=== PATIENT | male | born 1990 | race Caucasian/White ===

== ENCOUNTER 2020-06-20 06:12 | Outpatient (REF) | payer OTHER, SELFPAY | END 2020-06-20 06:13 | disposition home or self-care (01) | LOC: HO.HMGCLDS 06:12 | PROVIDERS: PCP Internal Medicine; Visit Provider Internal Medicine | DX: Z20.828 Contact with and (suspected) exposure to other viral communicable diseases (principal) | CPT/HCPCS: C9803; U0003 ==

== ENCOUNTER 2023-07-28 13:03 | Outpatient (AMB) | payer BC, SELFPAY ==
[2023-07-28 13:11] VITALS: BP 102/64; PULSE 62; O2SAT 98; BMI 24.7
--- NOTE | 2023-07-28 13:11 | A.OFFPC_ITS ---
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 Accompanied by: Self / Same As Patient Allergies peanuts Allergy (Severe, Uncoded 07/28/23 13:12) Rash Medication List - Last Reconciled 07/28/23 by Woo Francisco MD albuterol sulfate 90 mcg/actuation (ProAir HFA) 2 puffs inhalation Q4-6H PRN finasteride 1 mg PO DAILY Tobacco use date assessed: 07/28/23 Dental Screening Dental Screen Date: 07/28/23 Did you have a dental visit in the last 12 months?: Yes Did you have a dental problem in the last 6 months where you did not have access to dental care?: No Was dental information given to patient?: Patient has dentist HPI Annual PE HPI Details Asthma, stable [facility] Medical History (Updated 06/06/21 @ 10:25 by Woo Francisco MD) Asthma Social History Housing: House Patient Tobacco Use Status: Never used Tobacco e-Cigarette/Vaping Use: Never Used Second Hand Smoke Exposure: No service: No Current occupational status: employed Cognitive needs: No Hearing needs: No Vision needs: No Questionnaire PHQ-9 Over the last 2 weeks, how often have you been bothered by any of the following problems? 1. Little interest or pleasure in doing things: not at all 2. Feeling down, depressed, or hopeless: not at all 3. Trouble falling or staying asleep, or sleeping too much: not at all 4. Feeling tired or having little energy: not at all 5. Poor appetite or overeating: not at all 6. Feeling bad about yourself - or that you are a failure or have let yourself or your family down: not at all 7. Trouble concentrating on things, such as reading the newspaper or watching television: not at all 8. Moving or speaking so slowly that other people could have noticed. Or the opposite - being so fidgety or restless that you have been moving around a lot more than usual: not at all 9. Thoughts that you would be better off or of hurting yourself in some way: not at all Total score: 0 Depression Screening Interpretation: Negative Depression Screening Done: Yes 67345 - PHQ-9 Billing: Yes Source: Developed by Drs. Luis Barraza, Rashmi Erickson, Zaheer Zuleta and colleagues, with an educational noris from [employer]. Thrive Questionnaire Date Thrive assessed: 07/28/23 I am a: Patient What is your living situation today?: I have a steady place to live Within the past 12 months, did the food you bought not last and you didn't have the money to get more?: Never true Within the past 12 months, did you worry whether your food would run out before you got money to buy more?: Never true Do you have trouble paying for medicines?: No Do you have trouble getting transportation to medical appointments?: No Do you have trouble paying your heating and electricity bill?: No Do you have trouble taking care of your child, family member or friend?: No Do you have trouble with day-to-day activities such as bathing, preparing meals, shopping, managing finances, etc.?: No Are you currently unemployed and looking for a job?: No Are you interested in more education?: No Please select the resources that you would like help with: None THRIVE Score: 0 AUDIT C Alcohol Use Questionnaire (AUDIT-C) 1. How often do you have a drink containing alcohol?: 2-3 times a week 2. How many drinks containing alcohol do you have on a typical day when you are drinking?: 1 or 2 3. How often do you have six or more drinks on one occasion?: Never Total Score: 3 Score Reviewed/Action Taken: Yes EVI-7 AMB Questionnaire EVI-7 Date EVI - 7 assessed: 07/28/23 Feeling nervous, anxious, or on edge: 0 = Not at all Not being able to stop or control worryin = Not at all Worrying too much about different things: 0 = Not at all Trouble relaxin = Not at all Being so restless that it is hard to sit still: 0 = Not at all Becoming easily annoyed or irritable: 0 = Not at all Feeling afraid as if something awful might happen: 0 = Not at all Total EVI-7 score (0-4 normal; 5-9 mild; 10-14 moderate; 15-21 severe): 0 Source: Developed by Drs. Luis Barraza, Rashmi Erickson, Zaheer Zuleta and colleagues, with an educational noris from [employer]. EVI-7 Assessment Billing EVI-7 Assessment Tool: EVI-7 Assessment 11864 Review of Systems Const Denies chills, Denies fatigue, Denies headache(s) and Denies weight loss Eyes Denies change in vision, Denies diplopia and Denies eye pain ENT Denies vertigo, Denies dizziness, Denies headache(s) and Denies nasal discharge Card Denies chest pain, Denies rapid heart rate and Denies dyspnea on exertion Resp Denies chest congestion, Denies cough, Denies pain with cough and Denies dyspnea on exertion GI Denies abdominal pain, Denies hematochezia and Denies change in bowel habits Musc Denies myalgias, Denies arthralgias and Denies joint swelling Skin/Breast Denies lesions and Denies unusual bruising Neuro Denies vertigo, Denies dizziness, Denies headache(s) and Denies focal weakness Endo Denies fatigue Physical exam (Primary Care) Vital Signs: Last Vital Signs Pulse 62 07/28/23 13:11 BP 102/64 07/28/23 13:11 Pulse Ox 98 07/28/23 13:11 Oxygen Delivery Method Room Air 07/28/23 13:11 BMI result Body Mass Index 24.7 Tobacco/Smoking Status: Tobacco use Status Tobacco use date assessed 07/28/23 07/28/23 13:15 Patient Tobacco Use Status Never used Tobacco 07/28/23 13:15 e-Cigarette/Vaping Use Never Used 07/28/23 13:15 PHQ-9: PHQ-9 Score PHQ-9: Total score 0 07/28/23 13:15 Depression Screening Interpretation: Negative Thrive Assessment: Date of Thrive Assessment Date Thrive assessed 07/28/23 07/28/23 13:15 Const General: cooperative, healthy appearing and no acute distress Orientation/consciousness: oriented to person, oriented to place and oriented to time HENMT Head: Yes normal to inspection, Yes normocephalic and Yes atraumatic Mouth: Normal oral and palatal mucosa present and tongue normal Throat: Yes posterior oropharynx normal and Yes uvula midline Eyes General: appearance normal, both eyes and all related structures Neck Neck: Yes normal visual inspection, Yes full ROM and Yes no lymphadenopathy Thyroid: Thyroid normal Carotids: normal carotid upstroke Chest Chest palpation & inspection: normal inspection of the chest Resp Effort & Inspection: normal respiratory effort and able to speak in complete sentences Auscultation: clear to auscultation bilaterally Cardio Jugular venous distension: no JVD Palpation: normal PMI Rate: regular rate Rhythm: regular rhythm Heart sounds: S1 normal heart sound present and S2 normal heart sound present GI Inspection: Yes normal to inspection Palpation (GI): Soft to palpation and No hepatosplenomegaly present Auscultation: normal bowel sounds General: Yes no CVA tenderness Back/Spine/Pelvis Back: no CVA tenderness Skin General skin exam: no rashes or lesions noted Neuro General: oriented to person, oriented to place and oriented to time Extrem General: Yes normal to inspection and Yes full ROM Assessment and Plan Assessment & Plan (1) Physical exam: Code(s): Z00.00 - Encounter for general adult medical examination without abnormal findings Plan: do labs (2) Asthma: Code(s): J45.909 - Unspecified asthma, uncomplicated Plan: stable; same rx Orders: Orders Lipid Panel Today E78.5 - Hyperlipidemia, unspecified Comprehensive [place]. Panel Fast Today N28.9 - Disorder of kidney and ureter, unspecified Complete Blood Count Auto Diff Today D64.9 - Anemia, unspecified Coding Level of Care Code Est Pt Prev Care 18-39y(30117) Diagnoses Physical exam Z00.00 Asthma J45.909 Additional Codes EVI-7 Assessment Billing - EVI-7 Assessment Tool: EVI-7 Assessment 73400 ([id number])
== END 2023-07-28 13:24 | disposition home or self-care (01) ==
PROVIDERS: PCP Internal Medicine; Visit Provider Internal Medicine
DX: Z00.00 Encounter for general adult medical examination without abnormal findings (principal); J45.909 Unspecified asthma, uncomplicated
CPT/HCPCS: 99395

== ENCOUNTER 2023-11-08 07:51 | Outpatient (AMB) | payer BC, SELFPAY ==
--- NOTE | 2023-11-08 07:56 | MHC.PC.OV ---
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 At 1st it was worse and he could not lay down on the left side due to this matter. But then it started improving. He has full active range of motion but when lifting or doing certain movements he have to put his left elbow close to the body to be able to do certain movements. Has not received physical therapy or do any kind of imaging. The pain still happens about 20 times a day while doing certain movements. Sharp in quality. Resolve on its own or with Tylenol [id number]. I will refer him to ortho and order an x-ray. [facility] Medical History Asthma Surgical History No pertinent past surgical history Social History Housing: House Patient Tobacco Use Status: Never used Tobacco e-Cigarette/Vaping Use: Never Used Second Hand Smoke Exposure: No service: No Current occupational status: employed Current occupational exposures/hazards: No Cognitive needs: No Hearing needs: No Vision needs: No Questionnaire Thrive Questionnaire Date Thrive assessed: 07/28/23 EVI-7 AMB Questionnaire EVI-7 Date EVI - 7 assessed: 07/28/23 Source: Developed by Drs. Luis Barraza, Rashmi Erickson, Zaheer Zuleta and colleagues, with an educational noris from [employer]. Review of Systems Const All systems reviewed & are unremarkable except as noted in HPI and below Eyes Reports no additional complaints, Denies change in vision and Denies other visual disturbances Card Denies chest pain at rest, Denies chest pain with activity, Denies edema, Denies irregular heart rhythm, Denies claudication, Denies dyspnea, Denies dyspnea on exertion, Denies orthopnea, Denies paroxysmal nocturnal dyspnea and Denies slow heart rate Resp Denies cough, Denies dyspnea and Denies dyspnea on exertion Musc Reports arthralgias Physical exam (Primary Care) Vital Signs: Last Vital Signs BP 110/72 11/08/23 07:58 BMI result Body Mass Index 24.1 Tobacco/Smoking Status: Tobacco use Status Tobacco use date assessed 07/28/23 11/08/23 08:02 Patient Tobacco Use Status Never used Tobacco 11/08/23 08:02 e-Cigarette/Vaping Use Never Used 11/08/23 08:02 Thrive Assessment: Date of Thrive Assessment Date Thrive assessed 07/28/23 11/08/23 08:02 Resp Effort & Inspection: normal respiratory effort Auscultation: clear to auscultation bilaterally Cardio Jugular venous distension: no JVD Rate: regular rate Rhythm: regular rhythm Heart sounds: S1 normal heart sound present and S2 normal heart sound present Extrem General: Yes full ROM Left upper extremity: shoulder/upper arm Details: tenderness Assessment and Plan Assessment & Plan (1) Left shoulder pain: Code(s): M25.512 - Pain in left shoulder Qualifiers: Chronicity: chronic Qualified Code(s): M25.512 - Pain in left shoulder; G89.29 - Other chronic pain Plan: X-ray ordered. Referred to Ortho. Orders: Orders XR shoulder LT min 2V Today M25.512 - Pain in left shoulder Referrals Orthopedics Referral M25.512 - Pain in left shoulder Coding Level of Care Code Est Pt Level 3 (27539) Diagnoses Chronic left shoulder pain M25.512; G89.29 Chronicity: chronic Time Spent (min) 19
[2023-11-08 07:58] VITALS: BP 110/72; BMI 24.1
== END 2023-11-08 08:20 | disposition home or self-care (01) ==
PROVIDERS: PCP Internal Medicine; Visit Provider Internal Medicine
DX: M25.512 Pain in left shoulder (principal); G89.29 Other chronic pain
CPT/HCPCS: 99213

== ENCOUNTER 2023-11-09 16:15 | Outpatient (REF) | payer BC, SELFPAY ==
--- NOTE | ~2023-11-09 | XR_ITS ---
EXAMINATION: XR SHOULDER, LEFT CLINICAL INFORMATION: Pain in left shoulder. COMPARISON: None available. TECHNIQUE: Four views of the left shoulder. FINDINGS: Minimal degenerative changes in the acromioclavicular and glenohumeral joints. Acromioclavicular and glenohumeral alignment is preserved. No abnormal soft tissue calcifications identified adjacent to the humeral head to suggest rotator cuff pathology. XR/XR shoulder LT min 2V IMPRESSION: Minimal degenerative changes.
== END 2023-11-09 16:16 | disposition home or self-care (01) ==
LOC: HO.XRAY 16:15
PROVIDERS: PCP Internal Medicine; Visit Provider Internal Medicine
DX: M25.512 Pain in left shoulder (principal)
CPT/HCPCS: 73030

== ENCOUNTER 2023-12-01 15:03 | Outpatient (AMB) | payer BC, SELFPAY ==
--- NOTE | 2023-12-01 15:16 | MHC.OFFVIS ---
Intake Visit Reasons: New Pt - Left shoulder pain Intake Note: Sae a 33 year old male who presents today as a new patient for an evaluation of left shoulder pain. Patient reports left shoulder pain presented in July 2023 after a hard impact fall on his shoulder while skiing. Currently his pain is mostly located in his shoulder however at times will radiates down his arm to his bicep area. Intermittent pain that gets worse with certain arm movement. Numbness and tingling in elbow however this has subsided. NO previous tx. Allergies peanuts Allergy (Severe, Uncoded 12/01/23 15:50) Rash Medication List - Last Reconciled 12/01/23 by TATIANA Rodriguez albuterol sulfate 90 mcg/actuation (ProAir HFA) 2 puffs inhalation Q4-6H PRN finasteride 1 mg PO DAILY HPI HPI New Pt - Left shoulder pain: Details: Patient is a 33-year-old male reports to the office today for complaints of left shoulder pain that has been ongoing since he sustained a left shoulder injury while skiing in late July or early August of this year. The patient reports that he fell while skiing, and felt his entire shoulder ?push way back?. The patient reports that he was able to continue skiing at this time, however when he woke up the next morning he was experiencing severe pain, to the point where he could not drive with that arm or perform any other activities with that arm. The patient reports that, since this time, he has been able to regain full function of his shoulder, however this is often associated with a severe pain throughout his entire shoulder. When his pain is focal, the patient reports that it is over the anterior aspect of the shoulder, and ?deep within the shoulder?. He reports that his pain episodes feel like a flash of severe pain that goes away relatively quickly. The patient reports that this pain often occurs at work, particularly when he is holding weight over his head. The patient also reports that, a few days ago, his son placed his head on his left arm while it was in abduction, and this produced an extremely uncomfortable sensation in the patient's left shoulder, that felt like severe pain and instability. 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 Patient reports mild tenderness to palpation over the bicipital groove/greater and lesser tuberosities the humeral head. Active and passive range of motion full and intact, but the patient reports pain at approximately 170 degrees of forward flexion of left shoulder. Internal and external rotation at the shoulder full, intact and nonpainful. Negative cross-body abduction. Negative Armstrong's test. Mild weakness noted on empty can test in the left arm when compared to the right. Positive apprehension test of the left shoulder. NVI. All other exam findings within normal limits. Results Reviewed Results Reviewed: X-rays obtained in the office today and independently reviewed by me, Cristhian Borja PA-C, demonstrate no fracture or other acute bony abnormality. Assessment & Plan Assessment & Plan (1) Internal derangement of left shoulder: Code(s): M24.812 - Other specific joint derangements of left shoulder, not elsewhere classified Category: Medical (2) Left shoulder pain: Code(s): M25.512 - Pain in left shoulder Category: Medical Qualifiers: Chronicity: chronic Qualified Code(s): M25.512 - Pain in left shoulder; G89.29 - Other chronic pain Plan Patient referred to physical therapy today to help with shoulder strength and joint stabilization. Due to high index of suspicion for labral derangement, MRI arthrogram was also ordered today. Patient will schedule physical therapy, and will follow up with us in the office after MRI, or p.r.n. for any acute concerns. Patient will continue to work and use his left arm and shoulder as tolerated. Coding Level of Care Code New Pt Level 3 (94073) Diagnoses Internal derangement of left shoulder M24.812 Chronic left shoulder pain M25.512; G89.29 Chronicity: chronic
== END 2023-12-01 15:53 | disposition home or self-care (01) ==
PROVIDERS: PCP Internal Medicine; Visit Provider Physician Assistant
DX: M24.812 Other specific joint derangements of left shoulder, not elsewhere classified (principal); M25.512 Pain in left shoulder; G89.29 Other chronic pain
CPT/HCPCS: 99203

== ENCOUNTER → 2023-12-01 15:03 | Outpatient (BNVA) | payer BC, SELFPAY | PROVIDERS: PCP Internal Medicine; Visit Provider Physician Assistant ==

== ENCOUNTER 2024-01-06 12:45 | Outpatient (REF) | payer BC, SELFPAY ==
--- NOTE | ~2024-01-06 | FL_ITS ---
FLUOROSCOPIC GUIDED LEFT SHOULDER ARTHROGRAM INDICATIONS: Left shoulder pain. Intra-articular gadolinium injection is needed prior to MRI. Procedure: Risks and benefits and possible complications were discussed with the patient and the consent form was signed. The patient was placed supine on the fluoroscopy table. The left shoulder was prepped and draped in normal sterile fashion. 1% buffered lidocaine was used for anesthesia. A 22-gauge spinal needle was used to access the shoulder joint. Intra-articular position of the needle within the shoulder joint was verified using 3 cc of Omnipaque 300. A total of 10 mL of gadolinium/saline (1:200) contrast mixture was then injected into the shoulder joint. The needle was then removed and a Band-Aid was applied to the injection site. The patient tolerated the procedure well and was sent to MRI. There were no immediate complications. FL/FL arthrogram shoulder LT IMPRESSION: Successful fluoroscopic guided intra-articular instillation of dilute gadolinium into the left shoulder joint. Patient will undergo subsequent left shoulder MRI. The procedure was performed by gisela Greene PA-C, and directly supervised by Dr. Plasencia.
--- NOTE | ~2024-01-06 | MR_ITS ---
EXAMINATION: MR SHOULDER WITH CONTRAST, LEFT CLINICAL INFORMATION: Left shoulder pain. Possible labral injury, instability. COMPARISON: Radiograph dated 11/19/2023 TECHNIQUE: MRI of the shoulder was performed following the intra-articular administration of a dilute gadolinium-containing solution (arthrogram) on A high-field scanner. FINDINGS: ROTATOR CUFF: At the supraspinatus tendon insertion anteriorly there is a 1 cm (AP) partial-thickness interstitial tear involving 40-50% of the tendon thickness, associated with mild tendinosis. No articular surface involvement. Contrast material does not extend into this tear. No articular sided tears are identified. Infraspinatus and subscapularis tendons are normal. No muscle atrophy or fatty infiltration. BICEPS: Normal. CORACOACROMIAL ARCH: The undersurface of the acromion is curved with no subacromial spur. The acromioclavicular joint is normal. LABRUM/CAPSULE: There is a type II SLAP tear propagating through the superior labrum from the anterosuperior 1 o'clock position through the posterosuperior 10 o'clock position without involvement of the biceps tendon. No additional labral tears. Joint capsule is intact. GLENOHUMERAL JOINT/MARROW: Bone marrow signal is normal. No fracture or malalignment. Articular cartilage appears well-preserved. No intra-articular loose bodies. MR/MR shoulder LT w con IMPRESSION: 1. Type II SLAP tear. 2. A 1 cm (AP) partial-thickness interstitial tear at the supraspinatus tendon insertion.
[2024-01-06] MEDS: gadobutroL 2 ML VIAL IVPUSH (14:03)
== END 2024-01-06 12:46 | disposition home or self-care (01) ==
LOC: HO.XRAY 12:45
DX: M25.312 Other instability, left shoulder (principal)
CPT/HCPCS: 23350; 73040; 73222; A9585

== ENCOUNTER → 2024-01-06 12:48 | Outpatient (BNV) | payer BC, SELFPAY | PROVIDERS: Visit Provider Physician Assistant Surgical | DX: M25.512 Pain in left shoulder (principal) | CPT/HCPCS: 23350; 73040 ==

== ENCOUNTER 2024-02-10 15:05 | Outpatient (AMB) | payer BC, SELFPAY ==
[2024-02-10 15:06] VITALS: BMI 24.1
--- NOTE | 2024-02-10 15:06 | A.OFFVIS_ITS ---
Vital Signs 02/10/24 15:06 Height 5 ft 7 in Weight 154 lb BMI 24.1 Intake Visit Reasons: OV- LT shoulder MRI review Intake Note: Sae is a 33 year old -- hand dominant male who presents today for an MRI review of his left shoulder, He took a fall while skiing landing on the left shoulder in Jul. Patient reports that the left shoulder only hurts when he lifts something heavy. MR/MR shoulder LT w con IMPRESSION: 1. Type II SLAP tear. 2. A 1 cm (AP) partial-thickness interstitial tear at the supraspinatus tendon insertion. Allergies peanuts Allergy (Severe, Uncoded 12/01/23 15:50) Rash HPI HPI OV- LT shoulder MRI review: Details: Sae is a 33 year old -- hand dominant male who presents today for an MRI review of his left shoulder, He took a fall while skiing landing on the left shoulder in Jul. He comes in today for MRI review. He is actually feeling much better and has no pain. He has modified his activity slightly but he is completely and I worried about this problem now. Previously it was painful with reaching stretching or overhead activities but that has stopped. Most of the pain was anterior left shoulder. HPI Comments Details: Sae is a 33 year old -- hand dominant male who presents today for an MRI review of his left shoulder, He took a fall while skiing landing on the left shoulder in Jul. Patient reports that the left shoulder only hurts when he lifts something heavy. MR/MR shoulder LT w con IMPRESSION: 1. Type II SLAP tear. 2. A 1 cm (AP) partial-thickness interstitial tear at the supraspinatus tendon insertion. 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 Negative empty can. Negative Dewitt's. Results Reviewed Results Reviewed: MR/MR shoulder LT w con IMPRESSION: 1. Type II SLAP tear. 2. A 1 cm (AP) partial-thickness interstitial tear at the supraspinatus tendon insertion. Assessment & Plan Assessment & Plan (1) SLAP tear of shoulder: Code(s): S43.439A - Superior glenoid labrum lesion of unspecified shoulder, initial encounter Category: Medical Plan: Patient has type 2 slap tear on MRI and on clinical description of symptoms but he is asymptomatic now. I reviewed possible options in the future. No intervention warranted at this time. (2) Partial thickness rotator cuff tear: Code(s): M75.110 - Incomplete rotator cuff tear or rupture of unspecified shoulder, not specified as traumatic Category: Medical Plan: Patient also has a partial-thickness rotator cuff tear. If his symptoms return we will see him again but no intervention warranted at this time Coding Level of Care Code Est Pt Level 4 (96641) Diagnoses SLAP tear of shoulder S43.439A Partial thickness rotator cuff tear M75.110
== END 2024-02-10 15:30 | disposition home or self-care (01) ==
PROVIDERS: Visit Provider Orthopaedic Surgery
DX: S43.432A Superior glenoid labrum lesion of left shoulder, initial encounter (principal); S46.012A Strain of muscle(s) and tendon(s) of the rotator cuff of left shoulder, initial encounter
CPT/HCPCS: 99213

== ENCOUNTER → 2024-02-10 15:05 | Outpatient (BNVA) | payer BC, SELFPAY | PROVIDERS: Visit Provider Orthopaedic Surgery ==

== ENCOUNTER 2024-07-31 14:14 | Outpatient (AMB) | payer BC, SELFPAY ==
--- NOTE | 2024-07-31 14:17 | MHC.PC.OV ---
Vital Signs 07/31/24 14:18 Height 5 ft 7 in Weight 160 lb 4 oz BMI 25.1 BP 100/64 Blood Pressure Location Lt brachial Position Sitting Pulse 64 Pulse Source Pulse Oximeter Temp 97.7 F Temp Source Skin Pulse Oximetry (%) 98 Oxygen Delivery Method Room Air Intake Visit Reasons: annual exam Intake Note: Patient is here today for a physical. Carpenter Maintenance Required: No Echo Technologist: Not Required per policy Accompanied by: Self / Same As Patient Allergies peanuts Allergy (Severe, Uncoded 07/31/24 14:18) Rash Medication List - Last Reconciled 07/31/24 by Woo Francisco MD albuterol sulfate 90 mcg/actuation 2 puffs inhalation Q4-6H PRN finasteride 1 mg PO DAILY Tobacco use date assessed: 07/31/24 Dental Screening Dental Screen Date: 07/31/24 Did you have a dental visit in the last 12 months?: Yes Did you have a dental problem in the last 6 months where you did not have access to dental care?: No Was dental information given to patient?: Patient has dentist HPI annual exam HPI Details alopecia and mild asthma; doing well and healthy [facility] Medical History Asthma Surgical History No pertinent past surgical history Social History (Updated 07/31/24 @ 14:22 by RAY Suero) Housing: House Alcohol intake: current Alcohol intake frequency: a few times a month Patient Tobacco Use Status: Never used Tobacco e-Cigarette/Vaping Use: Never Used Second Hand Smoke Exposure: No service: No Current occupational status: employed 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 1. Little interest or pleasure in doing things: not at all 2. Feeling down, depressed, or hopeless: not at all 3. Trouble falling or staying asleep, or sleeping too much: not at all 4. Feeling tired or having little energy: not at all 5. Poor appetite or overeating: not at all 6. Feeling bad about yourself - or that you are a failure or have let yourself or your family down: not at all 7. Trouble concentrating on things, such as reading the newspaper or watching television: not at all 8. Moving or speaking so slowly that other people could have noticed. Or the opposite - being so fidgety or restless that you have been moving around a lot more than usual: not at all 9. Thoughts that you would be better off or of hurting yourself in some way: not at all Total score: 0 Depression Screening Interpretation: Negative Depression Screening Done: Yes Source: Developed by Drs. Luis Barraza, Rashmi Erickson, Zaheer Zuleta and colleagues, with an educational noris from [employer]. Thrive Questionnaire Date Thrive assessed: 07/31/24 I am a: Patient What is your living situation today?: I have a steady place to live Within the past 12 months, did the food you bought not last and you didn't have the money to get more?: Never true Within the past 12 months, did you worry whether your food would run out before you got money to buy more?: Never true Do you have trouble paying for medicines?: No Do you have trouble getting transportation to medical appointments?: No Do you have trouble paying your heating and electricity bill?: No Do you have trouble taking care of your child, family member or friend?: No Do you have trouble with day-to-day activities such as bathing, preparing meals, shopping, managing finances, etc.?: No Are you currently unemployed and looking for a job?: No Are you interested in more education?: No Please select the resources that you would like help with: None Currently or been in a relationship where the following occur: No concerns reported THRIVE Score: 0 AUDIT C Alcohol Use Questionnaire (AUDIT-C) 1. How often do you have a drink containing alcohol?: Monthly or less 2. How many drinks containing alcohol do you have on a typical day when you are drinking?: 1 or 2 3. How often do you have six or more drinks on one occasion?: Less than monthly Total Score: 2 EVI-7 AMB Questionnaire EVI-7 Date EVI - 7 assessed: 07/31/24 Feeling nervous, anxious, or on edge: 0 = Not at all Not being able to stop or control worryin = Not at all Worrying too much about different things: 0 = Not at all Trouble relaxin = Not at all Being so restless that it is hard to sit still: 0 = Not at all Becoming easily annoyed or irritable: 0 = Not at all Feeling afraid as if something awful might happen: 0 = Not at all Total VEI-7 score (0-4 normal; 5-9 mild; 10-14 moderate; 15-21 severe): 0 Source: Developed by Drs. Luis Barraza, Rashmi Erickson, Zaheer Zuleta and colleagues, with an educational noris from [employer]. Review of Systems Const Denies chills, Denies fatigue, Denies headache(s) and Denies weight loss Eyes Denies change in vision, Denies diplopia and Denies eye pain ENT Denies vertigo, Denies dizziness, Denies headache(s) and Denies nasal discharge Card Denies chest pain, Denies rapid heart rate and Denies dyspnea on exertion Resp Denies chest congestion, Denies cough, Denies pain with cough and Denies dyspnea on exertion GI Denies abdominal pain, Denies hematochezia and Denies change in bowel habits Musc Denies myalgias, Denies arthralgias and Denies joint swelling Skin/Breast Denies lesions and Denies unusual bruising Neuro Denies vertigo, Denies dizziness, Denies headache(s) and Denies focal weakness Endo Denies fatigue Physical exam (Primary Care) Vital Signs: Last Vital Signs Temp 97.7 F 07/31/24 14:18 Pulse 64 07/31/24 14:18 BP 100/64 07/31/24 14:18 Pulse Ox 98 07/31/24 14:18 Oxygen Delivery Method Room Air 07/31/24 14:18 BMI result Body Mass Index 25.1 Tobacco/Smoking Status: Tobacco use Status Tobacco use date assessed 07/31/24 07/31/24 14:23 Patient Tobacco Use Status Never used Tobacco 07/31/24 14:23 e-Cigarette/Vaping Use Never Used 07/31/24 14:23 PHQ-9: PHQ-9 Score PHQ-9: Total score 0 07/31/24 14:23 Depression Screening Interpretation: Negative Thrive Assessment: Date of Thrive Assessment Date Thrive assessed 07/31/24 07/31/24 14:23 Currently or been in a relationship where the following occur: No concerns reported Const General: cooperative, healthy appearing and no acute distress Orientation/consciousness: oriented to person, oriented to place and oriented to time HENMT Head: Yes normal to inspection, Yes normocephalic and Yes atraumatic Mouth: Normal oral and palatal mucosa present and tongue normal Throat: Yes posterior oropharynx normal and Yes uvula midline Eyes General: appearance normal, both eyes and all related structures Neck Neck: Yes normal visual inspection, Yes full ROM and Yes no lymphadenopathy Thyroid: Thyroid normal Carotids: normal carotid upstroke Chest Chest palpation & inspection: normal inspection of the chest Resp Effort & Inspection: normal respiratory effort and able to speak in complete sentences Auscultation: clear to auscultation bilaterally Cardio Jugular venous distension: no JVD Palpation: normal PMI Rate: regular rate Rhythm: regular rhythm Heart sounds: S1 normal heart sound present and S2 normal heart sound present GI Inspection: Yes normal to inspection Palpation (GI): Soft to palpation and No hepatosplenomegaly present Auscultation: normal bowel sounds General: Yes no CVA tenderness Back/Spine/Pelvis Back: no CVA tenderness Skin General skin exam: no rashes or lesions noted Neuro General: oriented to person, oriented to place and oriented to time Extrem General: Yes normal to inspection and Yes full ROM Coding Level of Care Code Est Pt Prev Care 40-64y(42380) Diagnoses Physical exam Z00.00 Asthma J45.909 Assessment & Plan Assessment & Plan (1) Physical exam: Code(s): Z00.00 - Encounter for general adult medical examination without abnormal findings Category: Medical Plan: stable; do labs (2) Asthma: Code(s): J45.909 - Unspecified asthma, uncomplicated Category: Medical Plan: stable; same rx Orders: Orders Lipid Panel Today Z13.220 - Encounter for screening for lipoid disorders Thyroid Stimulating Hormone Today Z13.29 - Encounter for screening for other suspected endocrine disorder Complete Blood Count Auto Diff Today Z13.0 - Encounter for screening for diseases of the blood and blood-forming organs and certain disorders involving the immune mechanism Comprehensive [place]. Panel Fast Today Z13.9 - Encounter for screening, unspecified
[2024-07-31 14:18] VITALS: BP 100/64; PULSE 64; TEMP 36.5; O2SAT 98; BMI 25.1
== END 2024-07-31 14:34 | disposition home or self-care (01) ==
PROVIDERS: Visit Provider Internal Medicine
DX: Z00.00 Encounter for general adult medical examination without abnormal findings (principal); J45.909 Unspecified asthma, uncomplicated

== ENCOUNTER 2025-03-23 13:36 | Outpatient (AMB) | payer BC, SELFPAY ==
[2025-03-23 13:47] VITALS: BP 122/90; PULSE 79; TEMP 36.3; O2SAT 99; BMI 25.4
--- NOTE | 2025-03-23 13:47 | MHC.PC.OV ---
Vital Signs 03/23/25 13:47 Height 5 ft 7 in Weight 162 lb 6 oz BMI 25.4 BP 122/90 H Blood Pressure Location Lt brachial Position Sitting Pulse 79 Pulse Source Pulse Oximeter Temp 97.3 F Temp Source Temporal Artery Scan Pulse Oximetry (%) 99 Oxygen Delivery Method Room Air Intake Visit Reasons: Severe back pain Allergies peanuts Allergy (Severe, Uncoded 03/23/25 13:49) Rash Medication List - Last Reconciled 03/23/25 by Jennifer Ellis MD albuterol sulfate 90 mcg/actuation 2 puffs inhalation Q4-6H PRN cyclobenzaprine 5 mg PO BEDTIME PRN diclofenac sodium 1% (Voltaren Arthritis Pain) 4 grams topical QID PRN finasteride 1 mg PO DAILY Tobacco use date assessed: 03/23/25 Dental Screening Dental Screen Date: 03/23/25 Did you have a dental visit in the last 12 months?: Yes Did you have a dental problem in the last 6 months where you did not have access to dental care?: No Was dental information given to patient?: Patient has dentist HPI HPI Comments History of Present Illness Details The patient is a 34-year-old male presenting with low back pain. The pain began two weeks ago after an incident at the park while playing with his child, where he experienced a sudden onset of back pain after spinning a playground equipment. Initially, the pain was manageable, but it worsened significantly after sneezing, leading to excruciating pain. The pain is localized to the lower back, radiating to the sides and hips, and is associated with muscle tightness and difficulty finding a comfortable position. The patient reports that the pain is alleviated by lying flat on his back and worsened by sneezing and certain movements. He has been taking 1000 mg of acetaminophen and 600 mg of ibuprofen to manage the pain, with varying effectiveness. The patient has not engaged in physical therapy but has attempted stretching exercises with assistance from his , who is a nurse. He has not had any imaging studies or formal medical evaluations for this episode of back pain. 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 1. Little interest or pleasure in doing things: not at all 2. Feeling down, depressed, or hopeless: not at all 3. Trouble falling or staying asleep, or sleeping too much: not at all 4. Feeling tired or having little energy: not at all 5. Poor appetite or overeating: not at all 6. Feeling bad about yourself - or that you are a failure or have let yourself or your family down: not at all 7. Trouble concentrating on things, such as reading the newspaper or watching television: not at all 8. Moving or speaking so slowly that other people could have noticed. Or the opposite - being so fidgety or restless that you have been moving around a lot more than usual: not at all 9. Thoughts that you would be better off or of hurting yourself in some way: not at all Total score: 0 Depression Screening Interpretation: Negative Depression Screening Done: Yes Source: Developed by Drs. Luis Barraza, Rashmi Erickson, Zaheer Zuleta and colleagues, with an educational noris from [employer]. Thrive Questionnaire Date Thrive assessed: 07/31/24 I am a: Patient What is your living situation today?: I have a steady place to live Within the past 12 months, did the food you bought not last and you didn't have the money to get more?: Never true Within the past 12 months, did you worry whether your food would run out before you got money to buy more?: Never true Do you have trouble paying for medicines?: No Do you have trouble getting transportation to medical appointments?: No Do you have trouble paying your heating and electricity bill?: No Do you have trouble taking care of your child, family member or friend?: No Do you have trouble with day-to-day activities such as bathing, preparing meals, shopping, managing finances, etc.?: No Are you currently unemployed and looking for a job?: No Are you interested in more education?: No Please select the resources that you would like help with: None Currently or been in a relationship where the following occur: No concerns reported THRIVE Score: 0 AUDIT C Alcohol Use Questionnaire (AUDIT-C) 1. How often do you have a drink containing alcohol?: Monthly or less 2. How many drinks containing alcohol do you have on a typical day when you are drinking?: 1 or 2 3. How often do you have six or more drinks on one occasion?: Less than monthly Total Score: 2 EVI-7 AMB Questionnaire EVI-7 Date EVI - 7 assessed: 07/31/24 Feeling nervous, anxious, or on edge: 0 = Not at all Not being able to stop or control worryin = Not at all Worrying too much about different things: 0 = Not at all Trouble relaxin = Not at all Being so restless that it is hard to sit still: 0 = Not at all Becoming easily annoyed or irritable: 0 = Not at all Feeling afraid as if something awful might happen: 0 = Not at all Total EVI-7 score (0-4 normal; 5-9 mild; 10-14 moderate; 15-21 severe): 0 Source: Developed by Drs. Luis Barraza, Rashmi Erickson, Zaheer Zuleta and colleagues, with an educational noris from [employer]. Review of Systems Const Details: Positives besides what was mentioned in HPI are in BOLD Constitutional: No Weight Change, No Fever, No Chills, No Night Sweats, No Fatigue, No Malaise ENT/Mouth: No Hearing Changes, No Ear Pain, No Nasal Congestion, No Sinus Pain, No Hoarseness, No sore throat, No Rhinorrhea, No Swallowing Difficulty Eyes: No Eye Pain, No Swelling, No Redness, No Foreign Body, No Discharge, No Vision Changes Cardiovascular: No Chest Pain, No SOB, No PND, No Dyspnea on Exertion, No Orthopnea, No Claudication, No Edema, No Palpitations Respiratory: No Cough, No Sputum, No Wheezing, No Smoke Exposure, No Dyspnea Gastrointestinal: No Nausea, No Vomiting, No Diarrhea, No Constipation, No Pain, No Heartburn, No Anorexia, No Dysphagia, No Hematochezia, No Melena, No Flatulence, No Jaundice Genitourinary: No Dysmenorrhea, No DUB, No Dyspareunia, No Dysuria, No Urinary Frequency, No Hematuria, No Urinary Incontinence, No Urgency, No Flank Pain, No Urinary Flow Changes, No Hesitancy Musculoskeletal: No Arthralgias, No Myalgias, No Joint Swelling, No Joint Stiffness, No Back Pain, No Neck Pain, No Injury History Skin: No Skin Lesions, No Pruritis, No Hair Changes, No Breast/Skin Changes, No Nipple Discharge Neuro: No Weakness, No Numbness, No Paresthesias, No Loss of Consciousness, No Syncope, No Dizziness, No Headache, No Coordination Changes, No Recent Falls Psych: No Anxiety/Panic, No Depression, No Insomnia, No Personality Changes, No Delusions, No Rumination, No SI/HI/AH/VH, No Social Issues, No Memory Changes, No Violence/Abuse Hx., No Eating Concerns Heme/Lymph: No Bruising, No Bleeding, No Transfusions History, No Lymphadenopathy Endocrine: No Polyuria, No Polydipsia, No Temperature Intolerance Physical exam (Primary Care) Vital Signs: Last Vital Signs Temp 97.3 F 03/23/25 13:47 Pulse 79 03/23/25 13:47 BP 122/90 H 03/23/25 13:47 Pulse Ox 99 03/23/25 13:47 Oxygen Delivery Method Room Air 03/23/25 13:47 BMI result Body Mass Index 25.4 Tobacco/Smoking Status: Tobacco use Status Tobacco use date assessed 03/23/25 03/23/25 13:50 Patient Tobacco Use Status Never used Tobacco 03/23/25 13:50 e-Cigarette/Vaping Use Never Used 03/23/25 13:50 PHQ-9: PHQ-9 Score PHQ-9: Total score 0 03/23/25 13:50 Depression Screening Interpretation: Negative Thrive Assessment: Date of Thrive Assessment Date Thrive assessed 07/31/24 03/23/25 13:50 Currently or been in a relationship where the following occur: No concerns reported Const Other: Pertinent findings are in BOLD GENERAL APPEARANCE NAD, activity normal for age, well developed/ well nourished, no cyanosis, pallor, or diaphoresis. EYES lids/conjunctiva normal. EARS/NOSE/THROAT Mucous membranes moist, nares normal, lips/teeth normal uvula midline without oral pharyngeal erythema, exudate or swelling TMs normal bilaterally. No lymphangitis/lymphedema. HEAD/NECK normocephalic atraumatic, no facial trauma, neck is supple. RESPIRATORY respiratory effort normal, speaks in full sentences, no tripod position, no accessory muscle use. Lungs clear to auscultation without rhonchi, wheezes, rales CARDIAC Regular rate and rhythm, no edema. ABDOMINAL Soft, ND/NT. No evidence of fluid wave. No pulsatile masses on exam, rebound tenderness, House sign or pain over Mcburney's point. MUSCLES/EXTREMITIES No abnormal range of motion, no swelling. Lower back muscle tightness. Leg raise negative bilaterally. SKIN Warm, pink and dry. No rashes, dermatoses, petechiae or lesions. NEUROLOGICAL Speech is clear and appropriate. Normal level of consciousness. Gait and coordination are normal. 5/5 strength in all extremities. PSYCH Normal mood and affect. Judgement/competence is appropriate Coding Level of Care Code Est Pt Level 3 (05736) Diagnoses Low back pain M54.50 Time Spent (min) 20 Assessment & Plan Assessment & Plan (1) Low back pain: Code(s): M54.50 - Low back pain, unspecified Category: Medical Plan: - Continue current use of acetaminophen and ibuprofen for pain management. - Referral to physical therapy for exercises to strengthen supporting muscles and reduce pressure on the back. - Prescribe cyclobenzaprine for use at night to alleviate muscle spasms. - Prescribe Voltaren gel for topical application to reduce inflammation. Plan I discussed with the patient the management of his low back pain, emphasizing the importance of continuing with acetaminophen and ibuprofen for pain relief. I recommended a referral to physical therapy to learn exercises that can help strengthen the muscles around the back and prevent future episodes. I also prescribed a muscle relaxant to be taken at night to help with muscle spasms and Voltaren gel for topical use to reduce inflammation. Orders: Orders PT Evaluation and Treatment Today M54.50 - Low back pain, unspecified Medications: New diclofenac sodium 1% (Voltaren Arthritis Pain) apply to single knee, ankle, foot; for foot includes sole/toes/top of foot 4 grams topical QID PRN 100 grams 0RF Low back pain cyclobenzaprine 5 mg PO BEDTIME PRN 30 tabs 3RF muscle spasm
--- OUTSIDE RECORDS SUMMARY | 2025-03-23 13:52 | XMS_ITS | Clinical Summary ---
Author Organization [address] [facility] Address [address] [place] [address] Phone Care Team Providers Care Principal Java Developer Name Role Phone Woo Francisco MD Primary Care Provider [phone] Encounters Date Type Department Care Team Description 02/12/2025 Lab Requisition [facility] - Main Lab [address] [facility] [place] [place] [address] Sae Vu MD Encounter for sterilization from Last 3 Months Social History Tobacco Use Types Packs/Day Years Used Date Smoking Tobacco: Never Assessed Sex and Gender Information Value Date Recorded Sex Assigned at Not on file Legal Sex Male 3:18 PM EDT Gender Identity Not on file Sexual Orientation Not on file Plan of Treatment Health Maintenance Due Date Last Done Comments DTaP,Tdap,and Td Vaccines (1 - Tdap) 11/09/2011 Hepatitis B Vaccines (1 of 3 - 19+ 3-dose series) 11/09/2011 Depression Screening 06/21/2024 HIV Screening 02/12/2025 Hepatitis C Screening 02/12/2025 Social Influencers of Health Screening 02/12/2025 COVID-19 Vaccine ( - 2023-2 5 season) 2025 Influenza Vaccine (#1) 2025 RSV Immunization Adult Patie nts (1 - 1-dose 75+ series) 11/09/2067 HIB Vaccines Aged Out No longer eligi ble based on patient's age to complete this topic HPV Vaccines Aged Out No longer eligi ble based on patient's age to complete this topic Hepatitis A Vaccines Aged Out No long er eligible based on patient's age to complete this topic IPV Vaccines Aged Out No longer eligi ble based on patient's age to complete this topic MMR Vaccines Aged Out No longer eligi ble based on patient's age to complete this topic Meningococcal ACWY Vaccine Aged Out N o longer eligible based on patient's age to complete this topic Meningococcal B Vaccine Aged Out No l onger eligible based on patient's age to complete this topic Pneumococcal Vaccine: Pediat rics (0 to 5 Years) and At-Risk Patients (6 to 49 Years) Aged Out No longer eligible b ased on patient's age to complete this topic RSV Immunization Patients Un cecille 20 months Aged Out No longer eligible b ased on patient's age to complete this topic Varicella Vaccines Aged Out No longer eligible based on patient's age to complete this topic Procedures Procedure Name Priority Date/Time Associated Diagnosis Comments TISSUE EXAM Routine 02/09/2025 Encounter for sterilization from Last 3 Months Results * Tissue Exam (02/09/2025) Final Diagnosis A. Vas Deferens, Right: -SEGMENT OF VAS DEFERENS, LUMEN IDENTIFIED B. Vas Deferens, Left: -SEGMENT OF VAS DEFERENS, LUMEN IDENTIFIED 02/14/2025 12:26 PM EDT [facility] Clinical Information Z30.2 Encounter for sterilization [id number] 02/14/2025 12:26 PM EDT [facility] Gross Description A. Vas Deferens, Right, : Labeled Right vas deferens . Received in formalin is a 0.2 x 0.3 cm rubbery, cline, tubular portion of tissue, with a central pinpoint lumen, which is submitted in toto in one cassette, between sponges, one piece, embed on end. (The luminal aspect is inked red to assist with embedding orientation.) B. Vas Deferens, Left, : Labeled Left vas deferens . Received in formalin is a 0.2 x 0.3 cm rubbery, cline, tubular portion of tissue, with a central pinpoint lumen, which is submitted in toto in one cassette, between sponges, one piece, embed on end. (The luminal aspect is inked red to assist with embedding orientation.) /al 02/14/2025 12:26 PM EDT [facility] Disclaimer Unless otherwise specified, all tissue is 10% NB formalin fixed and paraffin embedded. Technical pathology services provided by [facility] at [address], [place] [address] (CLIA #[id number]/Janae Prater MD, Maintenance Parts Technician) 02/14/2025 12:26 PM EDT [facility] ([facility]) [facility] Tissue Structure of left vas deferens / Unknown 02/09/2025 02/12/2025 3:21 PM EDT Tissue specimen (specimen) Structure of left vas deferens / Unknown 02/09/2025 02/12/2025 3:21 PM EDT us Sae Vu MD LAB PATHOLOGY ORDERABLES Fin al Result [facility] ([facility]) [facility] [address] [place] [address], from Last 3 Months Insurance [facility] Care Teams Principal Java Developer Relationship Specialty Start Date End Date Woo Francisco MD [address] [place] [address] PCP - General Internal Medicine 02/12/25
--- OUTSIDE RECORDS SUMMARY | 2025-03-23 13:52 | XMS_ITS | Encounter Summary ---
Author Organization [facility] Address [address] [place] [address] Care Team Providers Care Cullet Crusher Name Role Phone Woo Francisco MD Primary Care Provider [phone] Encounter Details Date Type Department Care Team (Latest Contact Info) Description 02/12/2025 Lab Requisition [facility] - Main Lab [address] [facility] [place] [address] Sae Vu MD [address] [place] [phone] Encounter for sterilization Social History Tobacco Use Types Packs/Day Years Used Date Smoking Tobacco: Never Assessed Sex and Gender Information Value Date Recorded Sex Assigned at Not on file Legal Sex Male 3:18 PM EDT Gender Identity Not on file Sexual Orientation Not on file documented as of this encounter Plan of Treatment Not on file documented as of this encounter Procedures Procedure Name Priority Date/Time Associated Diagnosis Comments TISSUE EXAM Routine 02/09/2025 Encounter for sterilization documented in this encounter Results * Tissue Exam (02/09/2025) Final Diagnosis A. Vas Deferens, Right: -SEGMENT OF VAS DEFERENS, LUMEN IDENTIFIED B. Vas Deferens, Left: -SEGMENT OF VAS DEFERENS, LUMEN IDENTIFIED 02/14/2025 12:26 PM EDT [facility] Clinical Information Z30.2 Encounter for sterilization [id number] 02/14/2025 12:26 PM EDT [facility] Gross Description A. Vas Deferens, Right, [...] embedding orientation.) /al 02/14/2025 12:26 PM EDT [facility] Disclaimer Unless otherwise specified, all tissue is 10% NB formalin fixed and paraffin embedded. Technical pathology services provided by [facility] at [address] [place] [address] [address], [place] [address] (CLIA #[id number]/Janae Prater MD, [employer]) 02/14/2025 12:26 PM EDT [facility] Tissue Structure of left vas deferens / Unknown 02/09/2025 02/12/2025 3:21 PM EDT Tissue specimen (specimen) Structure of left vas deferens / Unknown 02/09/2025 02/12/2025 3:21 PM EDT us Sae Vu MD LAB PATHOLOGY ORDERABLES Fin al Result [facility] [address] [place] [address], documented in this encounter Visit Diagnoses Diagnosis Encounter for sterilization Sterilization documented in this encounter Care Teams Cullet Crusher Relationship Specialty Start Date End Date Woo Francisco MD [address] [place] [address] PCP - General Internal Medicine 02/12/25 documented as of this encounter
== END 2025-03-23 14:08 | disposition home or self-care (01) ==
LOC: HO.HMCH 13:37
PROVIDERS: PCP Internal Medicine; Visit Provider Internal Medicine
DX: M54.50 Low back pain, unspecified (principal)